=== PATIENT | female | born 1980 ===

== ENCOUNTER 2024-04-13 13:54 | Day surgery (SDC) | payer OTHER ==
[~2024-04-13] VITALS: Ht 167.6 cm; Wt 59.2 kg
[~2024-04-13 13:54] MED LIST: Lactated Ringer's 1,000 ML IV ONE
[2024-04-13] MEDS ORDERED: AMIT25 (14:18)
[2024-04-13] MEDS ORDERED: SPIR25 (14:18)
[2024-04-13] MEDS ORDERED: SLYND4 MG (14:18)
[2024-04-13] MEDS ORDERED: Lidocaine 2% 5 ML SDV ONE (14:30)
[2024-04-13] MEDS ORDERED: Glycopyrrolate 0.2 MG/ML 1MLVIAL ONE (14:34)
[2024-04-13] MEDS ORDERED: ePHEDrine Sulfate 50 MG/ML 1ML Injection ONE (14:34)
[2024-04-13] MEDS ORDERED: Ondansetron HCl 2 MG / ML 2ML Vial ONE (14:34)
[2024-04-13] MEDS ORDERED: propofoL 50 ML IV ONE ×2 (14:38→15:23)
[2024-04-13] MEDS ORDERED: Lidocaine HCl/Pf 1% 5 ML VIAL ONE (14:40)
[2024-04-13] MEDS ORDERED: Lactated Ringer's 1,000 ML IV ONE (14:50)
== END 2024-04-13 16:42 | disposition home or self-care (01) ==
LOC: ORSCSDS 13:54
PROVIDERS: Internal Medicine Gastroenterology
PROC: 0DJ08ZZ Inspection of Upper Intestinal Tract, Via Natural or Artificial Opening Endoscopic (ICD-10-PCS; principal; 2024-04-13 15:00)
PROC: 0DJD8ZZ Inspection of Lower Intestinal Tract, Via Natural or Artificial Opening Endoscopic (ICD-10-PCS; principal; 2024-04-13 15:00)
DX: K62.5 Hemorrhage of anus and rectum (principal); R10.31 Right lower quadrant pain; R10.11 Right upper quadrant pain; K31.84 Gastroparesis; K21.9 Gastro-esophageal reflux disease without esophagitis; Z86.0101 Personal history of adenomatous and serrated colon polyps; K76.0 Fatty (change of) liver, not elsewhere classified; F41.9 Anxiety disorder, unspecified; F32.A Depression, unspecified; F43.10 Post-traumatic stress disorder, unspecified; Z79.899 Other long term (current) drug therapy
CPT/HCPCS: J2003; J2405; J2704; J7120